=== PATIENT | female | born 1970 | race Caucasian/White ===

== ENCOUNTER 2023-08-01 17:27 | Emergency (ER) | payer OTHER, BC, SELFPAY ==
[2023-08-01] VITALS (12 sets, daily range): BP systolic 131–172; BP diastolic 66–106; PULSE 63–116; RESP 18–19; TEMP 36.2–36.4; O2SAT 91–98
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
--- NOTE | ~2023-08-01 | XR_ITS ---
EXAMINATION: XR humerus RT INDICATION: Right arm pain TECHNIQUE: Two views of the right humerus are obtained. COMPARISON: None available FINDINGS: There is a comminuted, oblique fracture in the proximal shaft of the right humerus. The lar gest distal fracture fragment appears to be posteriorly displaced approximately 12 mm. Alignment at t he shoulder and elbow appears normal. No additional fracture is identified. IMPRESSION: 1. Comminuted and displaced proximal shaft fracture of the right humerus. Reviewed, dictated and finalized at location F.
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
--- NOTE | ~2023-08-01 | XR_ITS ---
EXAMINATION: XR elbow RT min 3V INDICATION: Right elbow pain TECHNIQUE: Three views of the right elbow are obtained. COMPARISON: None available FINDINGS: Nonstandard views of the elbow are provided. No acute fracture of the elbow is seen. There does not appear to be an elbow joint effusion. There is a partially imaged fracture of the proximal h umerus. IMPRESSION: 1. No elbow fracture identified. Reviewed, dictated and finalized at location F.
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
[2023-08-01] MEDS: MORPHINE SULFATE (*CRX) 4 MG/ML INJ IV PUSH (20:22)
[2023-08-01] MEDS: HYDROmorphone HCL INJ (*CRX) 1 MG/ML SYR IV PUSH (21:34)
[2023-08-01] MEDS: ONDANSETRON INJ 4 MG/2 ML VIAL IV PUSH (22:30)
== END 2023-08-01 23:00 | disposition home or self-care (01) ==
PROVIDERS: Emergency Provider Emergency Medicine; PCP Family Medicine
DX: S42.351A Displaced comminuted fracture of shaft of humerus, right arm, initial encounter for closed fracture (principal); V47.5XXA Car driver injured in collision with fixed or stationary object in traffic accident, initial encounter
CPT/HCPCS: 24500; 29125; 70450; 73030; 73060; 73080; 96374; 96375; 99284; A4565; J1170; J2270; J2405